=== PATIENT | female | born 1960 | race Hispanic/Latino ===

== ENCOUNTER → 2019-06-20 | Day surgery (SDC) | payer BC ==
[2019-06-19 16:45] LABS: ANION GAP 15.2 mmol/L (8-16); BLOOD UREA NITROGEN 10 mg/dL (7-26); BUN/CREATININE RATIO 14 (6-25); CALCIUM 9.6 mg/dL (8.4-10.2); CARBON DIOXIDE 27 mmol/L (22-29); CHLORIDE 100 mmol/L (98-107); CREATININE, SERUM 0.73 mg/dL (0.57-1.11); EST GLOMERULAR FILTRATION RATE > 60 ML/MIN (60-); GLUCOSE 99 mg/dL (74-118); POTASSIUM 3.2 mmol/L (3.5-5.1); SODIUM 139 mmol/L (136-145)
[~2019-06-20] MED LIST: ACETAMINOPHEN 1000 MG/100 ML IV ONE; ATORVASTATIN CA10 MG PO; BENAZEPRIL HCL10 MG PO; BUPIVACAINE HCL 0.5% INJ 30 ML VIAL INJ ONE; CEFAZOLIN SOD 1 GM/NS 50ML 100 ML IV ONE; DEXAMETHASONE SOD PHOS INJ 4 MG/ML VIAL ONE; EPHEDRINE SULFATE INJ 50 MG/ML VIAL ONE; FENTANYL CITRATE/PF 100MCG/2 ML INJ ONE; HYDROCHLOROTHIA25 MG PO; LIDOCAINE HCL 2% LOCAL INJ 5 ML SDV VIAL INJ ONE; METOCLOPRAMIDE HCL 10 MG/2ML VIAL ONE; MIDAZOLAM HCL 2 MG/2 ML VIAL ONE; ONDANSETRON HCL INJ 2MG/ML 2ML 2 MG/ML VIAL ONE; PROPOFOL IV EMULSION 10 MG/ML 20 ML VIAL ONE; SEVOFLURANE INHAL SOLN 250 ML PEN BTL ONE; VANCOMYCIN HCL 500 MG ONE; VIT D PO
--- OUTSIDE RECORDS SUMMARY | 2019-06-20 05:24 | XMS REPORT ---
Author Author [facility] Address Unknown Phone Unavailable Care Team Providers Care Deli Cutter Slicer Name Role Phone BENNY RDZ Unavailable Unavailable Payers Payer Name Policy Type Policy Number Effective Date Expiration Date Problems This patient has no known problems. Allergies, Adverse Reactions, Alerts Allergy Name Allergy Type Status Severity Reaction(s) Onset Date Inactive Date Treating Clinician Comments No Known Allergies DA Active U 2016-06-26 00:00:00 Medications This patient has no known medications. Results Test Description Test Time Test Comments Text Results Atomic Results Result Comments BASIC METABOLIC PANEL 2019-06-13 06:23:00 SODIUM (test code=NA) 138 mEq/L 134-147 POTASSIUM (test code=K) 3.6 mEq/L 3.4-5.0 CHLORIDE (test code=CL) 105 mEq/L 100-108 CARBON DIOXIDE (test code=CO2) 26 mEq/L 21-33 ANION GAP (test code=GAP) 11 0-20 GLUCOSE (test code=GLU) 111 mg/dL 70-110 BLOOD UREA NITROGEN (test code=BUN) 16 mg/dL 7-18 GLOMERULAR FILTRATION RATE (test code=GFR) 73.4 90-95 Units of measure=ml/min/1.73 m2 CREATININE (test code=CREAT) 0.8 mg/dL 0.6-1.3 CALCIUM (test code=CA) 8.9 mg/dL 8.0-10.5 [id number] 19:02:00* Test Item Value Reference Range Comments TROPONIN-I (test code=TROPI) < 0.015 ng/mL 0.000-0.045 Negative: <=0.045 Positive: >=0.046 Correlation with serial results, other cardiac markers andclinical findings is necessary to determine the clinicalsignificance of this result. Results using different methodologies should not be comparedto one another as quantitative results may vary by method. COMMENTS: 3 troponins total (including troponin done in ED)[id number] 16:25:00* Test Item Value Reference Range Comments TROPONIN-I (test code=TROPI) < 0.015 ng/mL 0.000-0.045 Negative: <=0.045 Positive: >=0.046 Correlation with serial results, other cardiac markers andclinical findings is necessary to determine the clinicalsignificance of this result. Results using different methodologies should not be comparedto one another as quantitative results may vary by method. COMMENTS: 3 troponins total (including troponin done in ED)B-TYPE NATRIURETIC [id number] 11:46:00* Test Item Value Reference Range Comments B-TYPE NATRIURETIC PEPTIDE (test code=BNP) 3.8 PG/ML 0-100 - CTA ABD PEL W [id number] 11:41:00 Name: NINI BREAUX [facility] : 1960 Age/S: 58 / F [address] [place] [address] Unit #: [id number] Loc: [place] [address] Phys: Zak Roa MD Acct: [id number] Dis Date: Status: REG ER PHONE #: [phone] Exam Date: 06/12/2019 1106 FAX #: [phone] Reason: near syncope, mid abd pain EXAMS: CPT CODE: [id number] CTA ABD PEL W CONT 62834 STUDY: - CT ANGIO CHEST, - CTA ABD PEL W CONT 06/12/2019 10:48 AM Ordering Physician: Zak Roa MD Patient Name: NINI BREAUX MR: [id number] : 1960; Age: 58 years y/o Female Clinical Indication: near syncope, mid abd pain Comparison: None TECHNIQUE: Multiple contiguous transaxial CT images were obtained from the base of the neck through the symphysis pubis. Two-dimensional and three-dimensional reformatted images were provided. IV CONTRAST: 100cc Omnipaque 300 DOSE: CT imaging performed at this location utilizes radiation dose optimization technique which includes one or more of the followin) Automated exposure control; 2) Adjustment of the mA and/or kV according to patient's size; 3) Use of iterative reconstruction techniques. DLP (mGy-cm): 878 FINDINGS: CTA CHEST: VASCULAR: THORACIC AORTA: Normal caliber without aneurysm or dissection. PULMONARY ARTERIES: No evidence of central pulmonary embolus. HEART: Normal size heart. NONVASCULAR: LUNG PARENCHYMA AND PLEURA: Well inflated lungs without consolidation, pleural effusion, or pneumothorax. AIRWAY: Clear central tracheobronchial tree. MEDIASTINUM AND BAR: No hilar or mediastinal lympha denopathy. SOFT TISSUES: No suspicious soft tissue lesion or abnor mality. PAGE 1 Signed Report (CONT INUED) Name: NINI BREAUX [place] : 1960 Age/S: 58 / F [address] [place] [address] Blvd Unit #: [id number] Loc: [place] [address] Phys: Zak Vasquez MD Acct: [id number] Dis Date: Status: REG ER JAYLAN NE #: [phone] Exam Date: 06/12/2019 1106 FAX #: Reason: near syncope, mid abd pain EXAM S: CPT CODE: [id number] CTA AB D PEL W CONT 97589 <Continued> OSSEOUS STRUCTURES: No fracture, dislocation, or suspicious focal osseous lesion. CTA ABDOMEN: VASCULAR: Abdominal Aorta: Normal caliber abdominal aorta without aneurysm or dissection. Celiac axis: Normal opacification without significant atherosclerosis or narrowing. SMA: Normal opacification without significant atherosclerosis or narrowing. Renal arteries: Normal opacification without significant atherosclerosis or n arrowing. ERAN: Normal opacification without significant atheroscle rosis or narrowing. IVC: Normal appearance given the degree of enhancement. NONVASCULAR: VISUALIZED LUNG BASES: No significant abnormality. BOWEL GAS: Normal nonobstructed bowel gas pattern. Mild colonic diverticulosis. APPENDIX: Normal appendix without inflammatory change. STOMACH: Normal for degree of disten tion. PERITONEUM AND MESENTERY: Free Air: No evidence of pne umoperitoneum. Free Fluid: No evidence of significant free fluid, loculate d fluid, peripherally enhancing abscess, or hemorrhage. Mesenteric a nd peritoneal fat: Normal without focal lesion or inflammation. LYMPH NODES: No lymphadenopathy or mass. PAGE 2 S igned Report (CONTINUED) Name: NINI BREAUX [facility] : 1960 Age/S: 58 / F [address] [place] [address] Unit #: [id number] Loc: [place] [address] Phys: Zak Roa MD Acct: [id number] Dis Date: Status: REG ER PHONE #: [phone] Exam Date: 06/12/2019 1106 FAX #: [phone] Reason: near syncope, mid abd pain EXAMS: CPT CODE: [id number] CTA ABD PEL W CONT 63374 <Continued> VASCULAR: Abdominal Aorta: Normal caliber abdominal aorta without aneurysm or dissection. IVC: Normal caliber nonenhanced. ABDOMINAL ORGANS: Liver: Normal size and morphology without discrete lesion. 1.4 cm right hepatic lobe nonenhancing lesion, favored to represent a cyst. Gallbladder: Postoperative change of cholecystectomy. Biliary Tree: Normal without dilatation. Kidneys: Normal size and morphology without discrete lesion or hydronephrosis. Adrenal Glands: 1.1 cm left adrenal nodule Pancreas: Normal size and morphology without discrete lesion. Spleen: Normal size and morphology without discrete lesion. SOFT TISSUES: Bilateral breast prostheses. OSSEOUS STRUCTURES: No fracture, dislocation, or suspicious focal osseous lesion. CTA PELVIS: VASCULAR: Common Iliac Arteries: Normal opacification without significant atherosclerosis or narrowing. External Iliac Arteries: Normal opacification without significant atherosclerosis or narrowing. Internal Iliac Arteries: Normal opacification without significant atherosclerosis or narrowing. PAGE 3 Signed Report (CONTINUED) Name: NINI JEONG [facility] : [birth year] Age/S: 58 / F [address] [place] [address] Unit #: [id number] Loc: [place] [address] Phys: Zak Roa MD Acct: [id number] Dis Date: Status: REG ER PHONE #: [phone] Exam Date: 06/12/2019 1106 FAX #: [phone] Reason: near syncope, mid abd pain EXAMS: CPT CODE: [id number] CTA ABD PEL W CONT 49104 <Continued> Common Femoral Arteries: Normal opacification without significant atherosclerosis or narrowing. NONVASCULAR: URINARY BLADDER: Normal for degree of distention. REPRODUCTIVE ORGANS: No organomegaly or mass lesions. LYMPH NODES: No lymphadenopathy or mass. FREE FLUID: No free pelvic fluid. SOFT T ISSUES: No suspicious soft tissue lesion or abnormality. OSSEOUS S TRUCTURES: No fracture, dislocation, or suspicious focal osseous lesion. IMPRESSION: Negative CT chest, abdomen, and pelvis with contrast. SL: [id number] 02 at 1141 Reported and signed by: Lon Ocampo M.D. CC: Zak Roa MD Technologist:Lennox ward, RT(R) CTDI: DLP: Trnscb Date/Time: 06/12/2019 (114 1) [email or web address] Orig Print D/T: S: 06/12/2019 (1144) PA GE 4 Signed Report - CT ANGIO [id number] 11:41:00 Name: NINI BREAUX [facility] : 1960 Age/S: 58 / F [address] [place] [address] Unit #: [id number] Loc: [place] [address] Phys: Zak Roa MD Acct: [id number] Dis Date: Status: REG ER PHONE #: [phone] Exam Date: 06/12/2019 1106 FAX #: [phone] Reason: near syncope, mid abd pain EXAMS: CPT CODE: [id number] CT ANGIO CHEST 86660 STUDY: - CT ANGIO CHEST, - CTA ABD PEL W CONT 06/12/2019 10:48 AM Ordering Physician: Zak Roa MD Patient Name: NINI BREAUX MR: [id number] : 1960; Age: 58 years y/o Female Clinical Indication: near syncope, mid abd pain Comparison: None TECHNIQUE: Multiple contiguous transaxial CT images were obtained from the base of the neck through the symphysis pubis. Two-dimensional and three-dimensional reformatted images were provided. IV CONTRAST: 100cc Omnipaque 300 DOSE: CT imaging performed at this location utilizes radiation dose optimization technique which includes one or more of the followin) Automated exposure control; 2) Adjustment of the mA and/or kV according to patient's size; 3) Use of iterative reconstruction techniques. DLP (mGy-cm): 878 FINDINGS: CTA CHEST: VASCULAR: THORACIC AORTA: Normal caliber without aneurysm or dissection. PULMONARY ARTERIES: No evidence of central pulmonary embolus. HEART: Normal size heart. NONVASCULAR: LUNG PARENCHYMA AND PLEURA: Well inflated lungs without consolidation, pleural effusion, or pneumothorax. AIRWAY: Clear central tracheobronchial tree. MEDIASTINUM AND BAR: No hilar or mediastinal lympha denopathy. SOFT TISSUES: No suspicious soft tissue lesion or abnor mality. PAGE 1 Signed Report (CONT INUED) Name: NINI BREAUX [facility] [place] : 1960 Age/S: 58 / F [address] [place] [address] Unit #: [id number] Loc: [place] [address] Phys: Zak Vasquez MD Acct: [id number] Dis Date: Status: REG ER JAYLAN NE #: [phone] Exam Date: 06/12/2019 1106 FAX #: Reason: near syncope, mid abd pain EXAM S: CPT CODE: [id number] CT ANG IO CHEST 03096 <Continued> OSSEOUS STRUCTURES: No fracture, dislocation, or suspicious focal osseous lesion. CTA ABDOMEN: VASCULAR: Abdominal Aorta: Normal caliber abdominal aorta without aneurysm or dissection. Celiac axis: Normal opacification without significant atherosclerosis or narrowing. SMA: Normal opacification without significant atherosclerosis or narrowing. Renal arteries: Normal opacification without significant atherosclerosis or n arrowing. ERAN: Normal opacification without significant atheroscle rosis or narrowing. IVC: Normal appearance given the degree of enhancement. NONVASCULAR: VISUALIZED LUNG BASES: No significant abnormality. BOWEL GAS: Normal nonobstructed bowel gas pattern. Mild colonic diverticulosis. APPENDIX: Normal appendix without inflammatory change. STOMACH: Normal for degree of disten tion. PERITONEUM AND MESENTERY: Free Air: No evidence of pne umoperitoneum. Free Fluid: No evidence of significant free fluid, loculate d fluid, peripherally enhancing abscess, or hemorrhage. Mesenteric a nd peritoneal fat: Normal without focal lesion or inflammation. LYMPH NODES: No lymphadenopathy or mass. PAGE 2 S igned Report (CONTINUED) Name: NINI BREAUX [place] : 1960 Age/S: 58 / F [address] [place] [address] Unit #: [id number] Loc: [place] [address] Phys: Zak Roa MD Acct: [id number] Dis Date: Status: REG ER PHONE #: [phone] Exam Date: 06/12/2019 1106 FAX #: [phone] Reason: near syncope, mid abd pain EXAMS: CPT CODE: [id number] CT ANGIO CHEST 48848 <Continued> VASCULAR: Abdominal Aorta: Normal caliber abdominal aorta without aneurysm or dissection. IVC: Normal caliber nonenhanced. ABDOMINAL ORGANS: Liver: Normal size and morphology without discrete lesion. 1.4 cm right hepatic lobe nonenhancing lesion, favored to represent a cyst. Gallbladder: Postoperative change of cholecystectomy. Biliary Tree: Normal without dilatation. Kidneys: Normal size and morphology without discrete lesion or hydronephrosis. Adrenal Glands: 1.1 cm left adrenal nodule Pancreas: Normal size and morphology without discrete lesion. Spleen: Normal size and morphology without discrete lesion. SOFT TISSUES: Bilateral breast prostheses. OSSEOUS STRUCTURES: No fracture, dislocation, or suspicious focal osseous lesion. CTA PELVIS: VASCULAR: Common Iliac Arteries: Normal opacification without significant atherosclerosis or narrowing. External Iliac Arteries: Normal opacification without significant atherosclerosis or narrowing. Internal Iliac Arteries: Normal opacification without significant atherosclerosis or narrowing. PAGE 3 Signed Report (CONTINUED) Name: NINI JEONG [facility] : [birth year] Age/S: 58 / F [address] [place] [address] Unit #: [id number] Loc: [place] [address] Phys: Zak Roa MD Acct: [id number] Dis Date: Status: REG ER PHONE #: [phone] Exam Date: 06/12/2019 1106 FAX #: [phone] Reason: near syncope, mid abd pain EXAMS: CPT CODE: [id number] CT ANGIO CHEST 89980 <Continued> Common Femoral Arteries: Normal opacification without significant atherosclerosis or narrowing. NONVASCULAR: URINARY BLADDER: Normal for degree of distention. REPRODUCTIVE ORGANS: No organomegaly or mass lesions. LYMPH NODES: No lymphadenopathy or mass. FREE FLUID: No free pelvic fluid. SOFT T ISSUES: No suspicious soft tissue lesion or abnormality. OSSEOUS S TRUCTURES: No fracture, dislocation, or suspicious focal osseous lesion. IMPRESSION: Negative CT chest, abdomen, and pelvis with contrast. SL: [id number] 02 at 1141 Reported and signed by: Lon Ocampo M.D. CC: Zak Roa MD Technologist:Lennox ward, RT(R) CTDI: DLP: Trnscb Date/Time: 06/12/2019 (114 1) [email or web address] Orig Print D/T: S: 06/12/2019 (1144) PA GE 4 Signed Report - CT HEAD/BRAIN W/O [id number] 11:24:00 Name: NINI BREAUX [facility] : 1960 Age/S: 58 / F [address] [place] [address] Unit #: [id number] Loc: [place] [address] Phys: Zak Roa MD Acct: [id number] Dis Date: Status: PRE ER PHONE #: [phone] Exam Date: 06/12/2019 1105 FAX #: [phone] Reason: syncope EXAMS: CPT CODE: [id number] CT HEAD/BRAIN W/O CONT 00876 STUDY: - CT HEAD/BRAIN W/O CONT 06/12/2019 10:33 AM Ordering Physician: Zak Roa MD Patient Name: NINI BREAUX MR: [id number] : 1960; Age: 58 years y/o Female Clinical Indication: syncope Comparison: None TECHNIQUE: Multiple contiguous transaxial noncontrast CT images were obtained through the head. Coronal and sagittal reformatted images were prepared. DOSE: CT imaging performed at this location utilizes radiation dose optimization technique which includes one or more of the followin) Automated exposure control; 2) Adjustment of the mA and/or kV according to patient's size; 3) Use of iterative reconstruction techniques. DLP (mGy-cm): 419 FINDINGS: BRAIN PARENCHYMA: The brain volume is appropriate for age. Partial empty sella. No evidence of acute intracranial hemorrhage, mass lesion, mass effect, midline shift, or extra-axial fluid collection. VENTRICLES: The lateral ventricles, third ventricle, fourth ventricle, and basilar cisterns are appropriate for degree of atrophy present. PARANASAL SINUSES: The visualized portions of the paranasal sinuses are clear. MASTOIDS: Clear. ORBITS: The visualized p ortions of the orbits are normal. SOFT TISSUES: No significant abn ormality. SKULL: No acute fracture or suspicious osseous lesion. IMPRESSION: PAGE 1 Signed Rep ort (CONTINUED) Name: NINI BREAUX : 1960 Age/S: 58 / F [address] [facility] [address] Unit #: [id number] Loc: [place], [place] [address] Phys: Zak Roa MD Acct: [id number] Dis Date: Status: PRE ER PHONE #: [phone] Exam Date: 06/12/2019 1105 FAX #: [phone] Reason: syncope EXAMS: CPT CODE: [id number] CT HEAD/BRAIN W/O CONT 60659 <Continued> No acute intracranial abnormality. SL: [id number] at 1124 Reported and signed by: Lon Ocampo M.D. CC: Zak Roa MD Technologist:Lennox Pack, RT(R) CTDI: DLP: Trnscb Date/Time: 06/12/2019 (1124) [email or web address] Orig Print D/T: S: 06/12/2019 (1127) PAGE 2 Signed Report COMPREHENSIVE METABOLIC [id number] 11:13:00* Test Item Value Reference Range Comments SODIUM (test code=NA) 140 mEq/L 134-147 POTASSIUM (test code=K) 4.0 mEq/L 3.4-5.0 CHLORIDE (test code=CL) 105 mEq/L 100-108 CARBON DIOXIDE (test code=CO2) 26 mEq/L 21-33 ANION GAP (test code=GAP) 13 0-20 GLUCOSE (test code=GLU) 134 mg/dL 70-110 BLOOD UREA NITROGEN (test code=BUN) 19 mg/dL 7-18 GLOMERULAR FILTRATION RATE (test code=GFR) 64.1 90-95 Units of measure=ml/min/1.73 m2 CREATININE (test code=CREAT) 0.9 mg/dL 0.6-1.3 TOTAL PROTEIN (test code=PROT) 7.5 g/dL 6.4-8.2 ALBUMIN (test code=ALB) 3.60 g/dL 3.4-5.0 CALCIUM (test code=CA) 8.6 mg/dL 8.0-10.5 BILIRUBIN TOTAL (test code=BILT) 0.3 MG/DL <1.5 SGOT/AST (test code=AST) 14 IUnit/L 15-37 SGPT/ALT (test code=ALT) 21 IUnit/L 15-65 ALKALINE PHOSPHATASE TOTAL (test code=ALKP) 78 IUnit/L 20-125 [id number] 11:13:00* Test Item Value Reference Range Comments LIPASE (test code=LIP) 105 IUnit/L 73-393 [id number] 11:10:00* Test Item Value Reference Range Comments D-DIMER (test code=DDIMER) 1035 ng/mlFEU <=500 THROMBOSIS AND/OR PULMONARY EMBOLISM AND THE CLINICAL CUT- OFF VALUE FOR EXCLUSION (500 ng/mL FEU) OF THESE CONDITIONSIS VALIDATED BY THE TRENCH DIGGER HELPER OF THE METHOD. A NEGATIVE D-DIMER RESULT WHEN COMBINED WITH A CLINICALASSESSMENT OF LOW PRETEST PROBABILITY HAS BEEN SHOWN TO HAVEA HIGH NEGATIVE PREDICTIVE VALUE OF DVT OR PE. D-DIMER VALUES >500 ng/mL FEU ARE NOT DIAGNOSTIC FOR DVT, PEor DIC WITHOUT OTHER CONFIRMATORY TESTS AND APPROPRIATECLINICAL EUALUATIONS. COMPREHENSIVE METABOLIC [id number] 11:02:00* Test Item Value Reference Range Comments SODIUM (test code=NA) 140 mEq/L 134-147 POTASSIUM (test code=K) 4.0 mEq/L 3.4-5.0 CHLORIDE (test code=CL) 105 mEq/L 100-108 CARBON DIOXIDE (test code=CO2) 26 mEq/L 21-33 ANION GAP (test code=GAP) 13 0-20 GLUCOSE (test code=GLU) 134 mg/dL 70-110 BLOOD UREA NITROGEN (test code=BUN) 19 mg/dL 7-18 GLOMERULAR FILTRATION RATE (test code=GFR) 90-95 CREATININE (test code=CREAT) mg/dL 0.6-1.3 TOTAL PROTEIN (test code=PROT) g/dL 6.4-8.2 ALBUMIN (test code=ALB) g/dL 3.4-5.0 CALCIUM (test code=CA) 8.6 mg/dL 8.0-10.5 BILIRUBIN TOTAL (test code=BILT) MG/DL <1.5 SGOT/AST (test code=AST) IUnit/L 15-37 SGPT/ALT (test code=ALT) IUnit/L 15-65 ALKALINE PHOSPHATASE TOTAL (test code=ALKP) IUnit/L 20-125 [id number] 11:02:00* Test Item Value Reference Range Comments LIPASE (test code=LIP) IUnit/L 73-393 - XR CHEST 1 [id number] 10:49:00 FAX: Zak Espinoza MD [phone] [place]: St: PRE Name: Marina KONINI [facility] : [birth year] Age/S: 58/F [address] [place] [address] Blvd Unit #: [id number] Loc: [place] [place] [address] Phys: Zak Roa MD Acct: [id number] Dis Date: Status: PRE ER PHONE #: [phone] Exam Date: 06/12/2019 1048 FAX #: [phone] Reason: syncope EXAMS: CPT CODE: [id number] XR CHEST 1 V 28676 EXAM: Single view AP chest. EXAM DATE: 06/12/2019 at 1035 hours CLINICAL HISTORY: s yncope COMPARISON: None Artifacts from clot dar are noted. Heart size is within normal limits. Tortuosity of th e intrathoracic aorta is identified. The lungs appear free of acute diseas e. Visualized osseous structures are unremarkable. Surgical clips ar e identified in the right upper quadrant. IMPRESSION: No evidenc e of acute cardiopulmonary disease. at 1049 Reported and signed by: Marli Magaña M.D. CC: Zak Roa MD Technologist: Isaiah Hernandez, RT(R) Laura Chon e/Time/By: 06/12/2019 (6265) : By: tDARÍO Orig Print D/T: S: 2019 (0459) PAGE 1 Signed Report TROPONIN-I [id number] 10:47:00* Test Item Value Reference Range Comments TROPONIN-I RAPID (test code=TROPIRAP) 0.00 ng/mL 0.00-0.08 Performed by certified dictaphone operator at [facility] Negative: <=0.08 Positive: >=0.09An elevated troponin value alone is not sufficient todiagnose a myocardial infarction. Rather, the patient sclinical presentation (history, physical exam) and ECGshould be used in conjunction with troponin in thediagnostic evaluation of suspected myocardial infarction. Aserial sampling protocol is recommended to facilitate the identification of temporal changes in troponin levels characteristic of [place]. CBC W/AUTO [id number] 10:43:00* Test Item Value Reference Range Comments WHITE BLOOD CELL (test code=WBC) 8.25 x10 3/uL 4.5-11.0 RED BLOOD CELL (test code=RBC) 3.97 x10 6/uL 3.54-5.02 HEMOGLOBIN (test code=HGB) 12.6 g/dL 11.0-15.0 HEMATOCRIT (test code=HCT) 38.5 % 33.0-45.0 MEAN CELL VOLUME (test code=MCV) 97.0 fL 81.0-99.0 MEAN CELL HGB (test code=MCH) 31.7 pg 27.0-33.0 MEAN CELL HGB CONCETRATION (test code=MCHC) 32.7 g/dL 33.0-37.0 RED CELL DISTRIBUTION WIDTH CV (test code=RDW) 13.5 % 11.5-14.5 RED CELL DISTRIBUTION WIDTH SD (test code=RDW-SD) 48.2 fL 37.0-54.0 PLATELET COUNT (test code=PLT) 194 x10 3/uL 150-400 MEAN PLATELET VOLUME (test code=MPV) 11.0 fL 7.0-9.0 NEUTROPHIL % (test code=NT%) 54.8 % 56.0-77.0 IMMATURE GRANULOCYTE % (test code=IG%) 0.4 % 0.0-2.0 LYMPHOCYTE % (test code=LY%) 37.6 % 14.0-32.0 MONOCYTE % (test code=MO%) 5.8 % 4.8-9.0 EOSINOPHIL % (test code=EO%) 1.0 % 0.3-3.7 BASOPHIL % (test code=BA%) 0.4 % 0.0-2.0 NUCLEATED RBC % (test code=NRBC%) 0.0 % 0-0 NEUTROPHIL # (test code=NT#) 4.53 x10 3/uL 2.0-7.6 IMMATURE GRANULOCYTE # (test code=IG#) 0.03 x10 3/uL 0.00-0.03 LYMPHOCYTE # (test code=LY#) 3.10 x10 3/uL 1.0-3.8 MONOCYTE # (test code=MO#) 0.48 x10 3/uL 0.1-0.8 EOSINOPHIL # (test code=EO#) 0.08 x10 3/uL 0.0-0.2 BASOPHIL # (test code=BA#) 0.03 x10 3/uL 0.0-0.2 NUCLEATED RBC # (test code=NRBC#) 0.00 x10 3/uL 0.0-0.1 MANUAL DIFF REQUIRED (test code=MDIFF) NO WRIST 3VW RT - [id number] 14:23:00 [place] [address] Patient Name: NINI BREAUX MR #: [id number] : 1960 Age/Sex: 58/F Req #: [id number] Adm Physician: Ordered by: BENNY RDZ MD Report #: [id number] Location: [facility] Room/Bed: Procedure: [id number] HOPD/ WRIST 3VW RT - HOPD Exam Date: 06/08/19 Exam Time: 1 352 REPORT STATUS: Signed Right hand and wrist 3 - views each HISTORY: Pain status post fall. COMPARI SON: None FINDINGS: Impaction fracture of the distal radial atelecta sis with intra-articular extension, however, without displacement. Slight vola r angulation.. Overlying soft tissue swelling. IMPRESSION: Impactio n fracture of the distal radial atelectasis with intra-articular extension Signed by: Dr. Jonelle New M.D. on 06/08/2019 2:26 PM Dictated By: ABI NEW MD, MD 142 COPY TO: AUBREY RDZ MD HAND 3 VIEW RT - [id number] 14:23:00 [place] [address] Patient Name: NINI BREAUX MR #: [id number] : 1960 Age/Sex: 58/F Req #: [id number] Adm Physician: Ordered by: BENNY RDZ MD Report #: [id number] Location: [facility] Room/Bed: Procedure: [id number] HOPD/ HAND 3 VIEW RT - HOPD Exam Date: 06/08/19 Exam Time: 1352 REPORT STATUS: Signed Right hand and wrist 3 - views each HISTORY: Pain status post fall. JORDY RISON: None FINDINGS: Impaction fracture of the distal radial atelec tasis with intra-articular extension, however, without displacement. Slight vo lar angulation.. Overlying soft tissue swelling. IMPRESSION: Impact ion fracture of the distal radial atelectasis with intra-articular extension Signed by: Dr. Jonelle New M.D. on 06/08/2019 2:26 PM Dictat ed By: ABI NEW MD, MD 25 COPY TO: BENNY RDZ MD
[2019-06-20 10:25] VITALS: BP 128/78
== END | disposition home or self-care (01) ==
LOC: OR 05:09
PROVIDERS: ATTEND Orthopaedic Surgery
DX: S52.571A Other intraarticular fracture of lower end of right radius, initial encounter for closed fracture (principal); G47.33 Obstructive sleep apnea (adult) (pediatric); I10 Essential (primary) hypertension; W01.198A Fall on same level from slipping, tripping and stumbling with subsequent striking against other object, initial encounter; Z01.810 Encounter for preprocedural cardiovascular examination; Z01.812 Encounter for preprocedural laboratory examination
CPT/HCPCS: 36415; 80048; 93005; C1713; J0690; J1100; J2001; J2250; J2405; J2765; J3010; J3370

== ENCOUNTER 2024-01-12 01:24 | Emergency (ER) | payer BC ==
[~2024-01-12] VITALS: Ht 160 cm; Wt 68.9 kg
[~2024-01-12 01:24] MED LIST changes: -ACETAMINOPHEN 1000 MG/100 ML IV ONE; -BUPIVACAINE HCL 0.5% INJ 30 ML VIAL INJ ONE; -CEFAZOLIN SOD 1 GM/NS 50ML 100 ML IV ONE; -DEXAMETHASONE SOD PHOS INJ 4 MG/ML VIAL ONE; -EPHEDRINE SULFATE INJ 50 MG/ML VIAL ONE; -FENTANYL CITRATE/PF 100MCG/2 ML INJ ONE; -LIDOCAINE HCL 2% LOCAL INJ 5 ML SDV VIAL INJ ONE; -METOCLOPRAMIDE HCL 10 MG/2ML VIAL ONE; -MIDAZOLAM HCL 2 MG/2 ML VIAL ONE; -ONDANSETRON HCL INJ 2MG/ML 2ML 2 MG/ML VIAL ONE; -PROPOFOL IV EMULSION 10 MG/ML 20 ML VIAL ONE; -SEVOFLURANE INHAL SOLN 250 ML PEN BTL ONE; -VANCOMYCIN HCL 500 MG ONE
[2024-01-12] MEDS ORDERED: SODIUM CHLORIDE 0.9% 1000ML 2,000 ML ONE (01:32)
[2024-01-12 01:39] VITALS: TEMP 97.5
[2024-01-12] MEDS: SODIUM CHLORIDE 0.9% 1000ML 1,000 ML IV STA ×2 (01:42→01:43)
[2024-01-12] MEDS: FAMOTIDINE 20 MG/2 ML VIAL IV STA (01:44)
[2024-01-12] MEDS: ONDANSETRON HCL INJ 2MG/ML 2ML 2 MG/ML VIAL IV STA (01:44)
[2024-01-12 01:59] LABS: BASOPHILS % 0.4 % (0.0-1.0); EOSINOPHILS # (AUTO) 0.1 (0.0-0.4); EOSINOPHILS % 0.8 % (0.0-6.0); HEMATOCRIT 37.6 % (34.2-44.1); HEMOGLOBIN 12.3 g/dL (12.0-16.0); LYMPHOCYTES # (AUTO) 2.9 (1.0-3.2); LYMPHOCYTES % 35.8 % (18.0-39.1); MEAN CORPUSCULAR HEMOGLOBIN 31.9 pg (28-32); MEAN CORPUSCULAR HGB CONC 32.7 g/dL (31-35); MEAN CORPUSCULAR VOLUME 97.7 fL (81-99); MONOCYTES # (AUTO) 0.5 (0.2-0.8); MONOCYTES % 6.1 % (4.4-11.3); NEUTROPHILS # (AUTO) 4.5 (2.1-6.9); NEUTROPHILS % 56.8 % (38.7-80.0); PLATELET COUNT 167 x10e3/uL (140-360); RED BLOOD COUNT 3.85 x10e6/uL (3.6-5.1); WHITE BLOOD COUNT 7.97 x10e3/uL (4.8-10.8)
[2024-01-12 02:14] LABS: ALBUMIN/GLOBULIN RATIO 1.3 (0.8-2.0); ANION GAP 16.4 mmol/L (8-16); BILIRUBIN,TOTAL 0.3 mg/dL (0.2-1.2); CALCIUM 8.8 mg/dL (8.4-10.2); CREATININE, SERUM 0.74 mg/dL (0.57-1.11); TOTAL PROTEIN 7.1 g/dL (6.5-8.1)
[2024-01-12 02:16] LABS: POTASSIUM 3.4 mmol/L (3.5-5.1)
[2024-01-12] MEDS ORDERED: IOPAMIDOL 370 MG/ML 100 ML INFUS..BTL INJ ONE (02:39)
[2024-01-12 03:06] VITALS: PULSE 74; RESP 17
[2024-01-12 03:21] LABS: BILIRUBIN,URINE NEGATIVE (NEGATIVE); CLARITY,URINE CLEAR (CLEAR); COLOR,URINE YELLOW (YELLOW); GLUCOSE, URINE NEGATIVE (NEGATIVE); KETONES,URINE NEGATIVE (NEGATIVE); LEUKOCYTE ESTERASE ,URINE NEGATIVE (NEGATIVE); NITRITE,URINE NEGATIVE (NEGATIVE); PH,URINE 6 (5 - 7); PROTEIN,URINE DIPSTICK NEGATIVE (NEGATIVE); URINE UROBILINOGEN 0.2 mg/dL (0.2 - 1)
[2024-01-12 03:36] VITALS: BP 107/68; PULSE 77; RESP 19; TEMP 98; O2SAT 97
[2024-01-12 03:42] LABS: RBC,URINE 0-5 /HPF (0-5)
[2024-01-12 03:43] LABS: BACTERIA,URINE MODERATE /HPF; EPITHELIAL CELLS,URINE FEW /LPF; WBC,URINE (MAN) 0-5 /HPF (0-5)
== END 2024-01-12 03:37 | disposition home or self-care (01) ==
LOC: ER 01:33
DX: R10.13 Epigastric pain (principal); K29.70 Gastritis, unspecified, without bleeding; R11.2 Nausea with vomiting, unspecified; F10.129 Alcohol abuse with intoxication, unspecified; K57.90 Diverticulosis of intestine, part unspecified, without perforation or abscess without bleeding; K76.0 Fatty (change of) liver, not elsewhere classified
CPT/HCPCS: 36415; 74177; 80053; 80320; 81001; 83690; 85025; 93005; 99284; J2405; J7030; Q9967